=== PATIENT | male | born 1980 | race Caucasian/White ===

== ENCOUNTER 2017-11-30 21:18 | Inpatient (IN) | payer MEDICARE, MEDICAID, OTHER ==
[~2017-11-30] VITALS: Ht 190.5 cm; Wt 117.9 kg
[2017-11-30 04:00] VITALS: BP 92/56
[2017-11-30] MEDS ORDERED: LORAZEPAM 1 MG TABLET PO PRN ×2 (22:15)
[2017-11-30] MEDS ORDERED: DICYCLOMINE HCL 20 MG TABLET PO PRN (22:15)
[2017-11-30] MEDS ORDERED: LORAZEPAM 2 MG/1 ML VIAL IM PRN (22:15)
[2017-11-30] MEDS ORDERED: ACETAMINOPHEN 325 MG TABLET PO PRN (22:15)
[2017-11-30] MEDS ORDERED: IBUPROFEN 600 MG TABLET PO PRN (22:15)
[2017-11-30] MEDS ORDERED: ONDANSETRON 4 MG/2 ML VIAL IM PRN (22:15)
[2017-11-30] MEDS ORDERED: LOPERAMIDE HCL 2 MG CAPSULE PO PRN ×2 (22:15)
[2017-11-30] MEDS ORDERED: BUPRENORPHINE HCL 2 MG TAB.SUBL SL PRN (22:15)
[2017-11-30] MEDS ORDERED: diphenhydrAMINE 50 MG CAPSULE PO PRN (22:15)
[2017-11-30] MEDS ORDERED: MAGNESIUM HYDROXIDE 30 ML LIQUID UDC PO PRN (22:15)
[2017-11-30] MEDS ORDERED: CLONIDINE HCL 0.1 MG TABLET PO PRN (22:15)
[2017-11-30] MEDS ORDERED: MAG HYDROX/AL HYDROX/SIMETH 30 ML LIQUID UDC PO PRN (22:15)
[2017-11-30] MEDS ORDERED: ONDANSETRON ODT 4 MG TAB.RAPDIS SL PRN (22:15)
[2017-11-30 22:32] LABS: BASOPHILS % (AUTO) 0.3 % (0.0-2.0); EOSINOPHILS % (AUTO) 0.4 % (0.0-7.0); HEMATOCRIT 43.5 % (36.7-47.1); HEMOGLOBIN 15.1 g/dL (12.5-16.3); LYMPHOCYTES # (AUTO) 2.3 K/uL (20.0-40.0); LYMPHOCYTES % (AUTO) 21.6 % (20.5-51.5); MEAN CORPUSCULAR HEMOGLOBIN 29.3 uug (23.8-33.4); MEAN CORPUSCULAR HGB CONC 35 g/dL (32.5-36.3); MEAN CORPUSCULAR VOLUME 84.5 fL (73.0-96.2); MONOCYTES # (AUTO) 1.1 K/uL (2.0-10.0); MONOCYTES % (AUTO) 10.5 % (0.0-11.0); NEUTROPHILS # (AUTO) 7.2 K/uL (1.8-8.9); NEUTROPHILS % (AUTO) 67.2 % (38.5-71.5); PLATELET COUNT (AUTO) 215 K/uL (152-348); RED BLOOD CELL COUNT(AUTO) 5.15 MIL/uL (4.06-5.63); WHITE BLOOD COUNT (AUTO) 10.7 K/uL (3.6-10.2)
[2017-11-30 22:50] VITALS: BP 115/78
--- NOTE | 2017-11-30 22:50 | NUR ---
Pre-admission assessment Patient is a 37-year old, male, seen at intake, AAOx4, no SOB and with extreme anxiety noted at this time. Discussed with patient admission policies of the unit. Patient is coherent and able to respond to questions appropriately but ntoed with racing thoughts. Pt is ambulatory with steady gait, with knee stabilizer on the right knee. Pt reports using Xanax up to 3mg PO daily and [place] 10/325 mg PO up to 4x daily. Both are prescribed. Vital signs taken and as follows: WE=028/78, P=82, O2 sat on RA=97%, RR=22, T=98.5. Pt verbalized instructions and teachings regarding disposal of narcotic and other controlled home meds, unit protocols such as taking of vital signs Q4H and handling and disposal of contraband.
[2017-11-30 22:55] LABS: ETHANOL < 3 MG/DL (0-0)
[2017-11-30 23:00] LABS: ALANINE AMINOTRANSFERASE 46 U/L (16-63); ALKALINE PHOSPHATASE 91 U/L (50-136); ASPARTATE AMINOTRANSFERASE 28 U/L (15-37); BILIRUBIN,TOTAL 0.5 mg/dL (0.2-1.0); CARBON DIOXIDE 25 mmol/L (21-32); CHLORIDE 102 mmol/L (98-107); CREATININE 0.9 mg/dL (0.6-1.3); GLUCOSE 97 mg/dL (74-106); MAGNESIUM 1.9 mg/dL (1.8-2.4); POTASSIUM 3.5 mmol/L (3.5-5.1); TOTAL PROTEIN, SERUM 7.6 g/dL (6.4-8.2); UREA NITROGEN, BLOOD 11 mg/dL (7-18)
[2017-11-30] MEDS ORDERED: LORAZEPAM 1 MG TABLET PO SCH (23:00)
--- NOTE | 2017-11-30 23:04 | NUR ---
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 HEIGHT IS 6'3 AND WEIGHT IS 260 LBS. LUNGS ARE CLEAR AND ABDOMEN SOFT AND NON-DISTENDED. BOWEL SOUNDS ACTIVE ON ALL 4 QUADRANT. LAST BOWEL MOVEMENT TODAY. BODY CHECK DONE, SKIN INTACT. OLD SCAR NOTED ON RIGHT KNEE AND LOWER BACK. PATIENT REPORTS PMH OF SLEEP APNEA (ON C-PAP MACHINE), 4 BACK SURGERIES , 7 KNEE SURGERIES, ANXIETY, PANIC D/O, AGORAPHOBIA, SOCIAL D/O, BIPOLAR D/O, ATRIAL FIB, GASTRITIS, GERD, GALLBLADDER REMOVAL, OSTEOMYELITIS, RIGHT HAND SURGERY AND ACL REPAIR. PATIENT REQUESTS TO BE FULL CODE AND ON REGULAR DIET. NO SEIZURE HISTORY. PATIENT LIVES WITH HIS AND KIDS, HES RETIRED. PER PATIENT THIS IS HIS FIRST TIME IN [place] . HES HERE BECAUSE HE WANTS HIS LIFE BACK. HE WAS TRYING TO TAPER HIMSELF AT HOME BUT UNSUCCESSFUL. SUBSTANCE HISTORY ARE: OXYCODONE-ACETAMINOPHEN 10/325 (PRESCRIBED)- STARTED USING SINCE 2006. PATIENT IS USING TAB FOR A WEEK, PREVIOUSLY USING 3-4 TABS DAILY. LAST USE WAS TAB ON 11/30/17 XANAX STARTED USING SINCE 2011 (PRESCRIBED). PATIENT TAKES 3 MG DAILY FOR 3 WEEKS , PREVIOUSLY USING 6 MG DAILY. LAST USE WAS 2 MG ON 11/30/17 MARIJUANA (PRESCRIBED)-STARTED USING A YEAR AGO. PATIENT SMOKES 1 GRAM IN 2 MONTHS. LAST USE WAS 2 HITS ON 11/29/17 PATIENT ADMITTED USING ATIVAN 2 MG , PRESCRIBED BY HIS MD FOR TRIAL IN REPLACE FOR XANAX . HE ONLY USE IT FOR 2 DAYS BECAUSE ATIVAN MAKES HIM SICK. PATIENT'S PCP IS DR. KERA BRICE AND PSYCHIATRIST DR. CARLINE HAWTHORNE. DENIES SI/HI. PATIENT REFUSED FLU/PNEUMONIA VACCINE DUE TO FEARS OF SIDE EFFECTS. EXPLAINED RISKS/BENEFITS BUT STILL REFUSED. HE QUIT SMOKING 1 AND MONTHS AGO. PATIENT BROUGHT HOME MEDS-RECONCILED. PATIENT NOTED ANXIOUS, EMOTIONAL AND ,FLUSHED. COWS 5 AND CIWA 5. ORIENTED PATIENT TO SURROUNDINGS AND HOW TO USE CALL LIGHT. PATIENT STATES HES TIRED AND WANTS TO SLEEP. PATIENT C/O PAIN ON LOWER BACK 3/10, TOLERATED. SAFETY MEASURES IN PLACE. CALL LIGHT IN REACH. WILL CONTINUE TO MONITOR.
[2017-11-30] MEDS ORDERED: LORA-259 PO (23:18)
[2017-11-30] MEDS ORDERED: ALPR2TAB7 PO (23:18)
[2017-11-30] MEDS ORDERED: FLEC100T2 PO (23:18)
[2017-11-30] MEDS ORDERED: HYDR-548 PO (23:18)
[2017-11-30] MEDS ORDERED: DEXL60CA3 PO (23:18)
[2017-11-30] MEDS ORDERED: METO50TA7 PO (23:18)
[2017-12-01 00:48] LABS: *AMPHETAMINE, URINE NEGATIVE (NEGATIVE); *BARBITURATE, URINE NEGATIVE (NEGATIVE); *CANNABINOID, URINE NEGATIVE (NEGATIVE); *COCCAINE, URINE NEGATIVE (NEGATIVE); *OPIATE, URINE NEGATIVE (NEGATIVE); *PHENCYCLIDINE SCREEN,URINE NEGATIVE (NEGATIVE)
[2017-12-01 04:00] VITALS: BP 92/56
--- NOTE | 2017-12-01 04:00 | NUR ---
COWS AND CIWA DEFERRED PATIENT SLEEPING. RESPIRATION EVEN AND UNLABORED. SAFETY MEASURES IN PLACE. CALL LIGHT IN REACH. WILL CONTINUE TO MONITOR.
--- NOTE | 2017-12-01 07:05 | NUR ---
END OF SHIFT NOTE PATIENT SLEPT 3 HOURS. FLUID INTAKE 1,200 ML.VOIDED X 1. NO BM. 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 FIRST TIME IN [place]. PATIENT DID NOT REQUIRE ANY PRN MEDICATION. PATIENT REFUSED [address] HERNANDEZ. LAST COWS 5 AND CIWA 5. EKG DONE RESULTED NORMAL SINUS RHYTHM AND NORMAL ECG. SAFETY MEASURES IN PLACE. CALL LIGHT IN REACH. WILL CONTINUE TO MONITOR.
--- NOTE | 2017-12-01 07:16 | NUR ---
Start of Shift Notes: Received report from night nurse. Patient is a 37 year old male admitted for opiate/BZO dependence who was placed on PRNs at this time . Has past medical hx of sleep apnea, anxiety, panic disorder, social disorder, bipolar disorider, atrial fib, gastritis, cholecystectomy, agoraphobia, back surgery, GERd, knee surgery, right hand surgery, ACL repair, osteomyelitis. FULL CODE. Regular diet. Allergic to Latex and morophine. Patient is alert and oriented x 4. Respirations even and unlabored. No SOB noted. Skin warm and dry to touch. Abdomen soft and non-distended with (+) BS in all 4 quadrants. No complains of N/V/D or constipation noted. Voids independently. Ambulatory ad tanvir with steady gait. Encouraged oral fluid intake and encouraged group participation to learn new skills to prevent relapse. Will continue to monitor closely.
[2017-12-01 08:00] VITALS: BP 119/65
--- NOTE | 2017-12-01 08:45 | NUR ---
MD Communication: Subutex order Clarified patient's allergies. Patient reports that he gets a headache from taking morphine and that it is not a true allergy. Notified MD and notified pharmacy. Per MD, he will come and see the patient first before Subutex administration. Notified and reassured patient.
[2017-12-01] MEDS: LORAZEPAM 1 MG TABLET PO SCH ×3 (08:53→20:31)
[2017-12-01] MEDS: GABAPENTIN 300 MG CAPSULE PO SCH ×2 (08:53→20:32)
--- NOTE | 2017-12-01 08:56 | NUR ---
Zofran 4mg SL/Robaxin 750 mg/Clonidine 0.1mg/Bentyl 20 mg PO given: COWS 21/CIWA 13, patient presented with chills, hot flashes, pupil dilation, myalgia, sweats, anxiety, feeling of panic attack, stomach cramps and vomitting x 4. Medicated patient with ZOfran 4 mg SL, Robaxin 750 mg, Clonidine 0.1mg and Bentyl 20 mg PO as ordered. Notified MD Fenton of patient's COWS/CIWA score. Will come and see the patient shortly. Will monitor for effectiveness.
[2017-12-01] MEDS: METHOCARBAMOL 750 MG TABLET PO PRN ×2 (08:57→20:31)
[2017-12-01] MEDS ORDERED: BUPRENORPHINE HCL 2 MG TAB.SUBL SL SCH (09:00)
[2017-12-01] MEDS ORDERED: TUBERCULIN,PURIF.PROT.DERIV. 5 TU/0.1 ML TEST ID ONE (09:00)
--- NOTE | 2017-12-01 09:56 | NUR ---
Re-assessment: Zofran, Robaxin, Clonidine, Bentyl Per patient, PRN Zofran, Robaxin, Clonidine, and Bentyl were effective in reducing N/V, myalgia, sweats, anxiety, aching and stomach cramps. PL 2/10.
[2017-12-01] MEDS: BUPRENORPHINE HCL 2 MG TAB.SUBL SL SCH ×2 (10:49→20:34)
--- NOTE | 2017-12-01 10:50 | NUR ---
Subutex 4 mg SL later administration: Per , OK to give Subutex at this time. COWS 21.
[2017-12-01] MEDS ORDERED: hydrALAZINE HCL 50 MG TABLET PO PRN (11:15)
[2017-12-01 12:00] VITALS: BP 149/101
[2017-12-01] MEDS: HYDROXYZINE PAMOATE 25 MG CAPSULE PO PRN (12:29)
--- NOTE | 2017-12-01 12:29 | NUR ---
Hydralazine/Vistaril PO given: Patient noted with complain of moderate anxiety. Pulse 90, BP 149/101. Redirected patient with no help. Medicated patient with Hydralazine and Vistaril as ordered. Will monitor effectiveness.
[2017-12-01 13:29] VITALS: BP 139/89
--- NOTE | 2017-12-01 13:29 | NUR ---
Re-assessment: Vistaril and Hydralazine Patient verbalizes mild relief from anxiety. Blood pressure 139/89, Pulse 68. PRN Hydralazine and Vistaril were effective in reducing patient's anxiety and blood pressure.
--- NOTE | 2017-12-01 15:44 | NUR ---
Psych MD Communication: Patient requested to be seen by Dr. Fuentes. Notified Dr. Moore. Dr. Moore and Dr. Fuentes are all in agreement.
[2017-12-01 16:00] VITALS: BP 113/57
--- NOTE | 2017-12-01 19:02 | NUR ---
End of Shift Notes: Patient initiated his 4-day Ativan and 4-day Subutex taper as ordered. No adverse reactions noted. Patient is tolerating taper well. VS monitored closely. BP at 1200 was 149/101, medicated patient with Hydroxyzine at 1229 with help after 1 hour. Withdrawal symptoms were closely monitored. Initial COWS 21/CIWA 13, patient presented with elevated pulse, facial flushing, restlessness, pupil dilation, bone/joint aches, myalgia, runny nose, vomiting, nausea, tremors, sweating, paresthesia, cloudiness in mentation, agitation and anxiety. Medicated patient with Zofran, Robaxin, Clonidine, and Bentyl at 0856 with help after 1 hour. Vistaril 25 mg PO given at 1229 for anxiety with help. Last COWS 8/CIWA 7. Unable to participate in group and activities due to his withdrawal symptoms. On fall and seizure precautions. All needs met and attended. Will continue to monitor closely.
[2017-12-01 20:00] VITALS: BP 152/80
--- NOTE | 2017-12-01 20:00 | NUR ---
START OF SHIFT NOTE RECEIVED REPORT FROM DAY SHIFT NURSE. PATIENT IS A 37 YEAR OLD MALE ADMITTED FOR OPIATE/BENZO DEPENDENCE. CONTINUE PATIENT ON 4 DAY SUBUTEX AND 4 DAY ATIVAN TAPER. PATIENT IS ALLERGIC TO LATEX AND MORPHINE. PATIENT REPORTS PMH OF SLEEP APNEA (ON C-PAP MACHINE), ANXIETY, ATRIAL FIB, GERD, BACK AND KNEE SURGERIES. SKIN INTACT. PATIENT WAS GIVEN PRN HYDRALAZINE, VISTARIL, ZOFRAN , CLONIDINE , BENADRYL , BENTYL AND ROBAXIN. LAST COWS 8 AND CIWA 7. RECEIVED PATIENT ANXIOUS, SWEATING, FINE TREMORS NOTED, BODY ACHES 5/10, NO/V. PATIENT ATTENDED GROUPS. APPETITE IS GOOD. RELAXATION TECHNIQUE PROVIDED. SAFETY MEASURES IN PLACE CALL LIGHT IN REACH. WILL CONTINUE TO MONITOR
--- NOTE | 2017-12-01 20:31 | NUR ---
PRN ROBAXIN ADMINISTRATION PATIENT C/O GENERALIZED BODY ACHES /10. WILL MONITOR FOR EFFECTIVENESS
[2017-12-01] MEDS: METOPROLOL 50 MG PO SCH (20:33)
[2017-12-01] MEDS: FLECAINIDE 150 MG PO SCH (20:34)
--- NOTE | 2017-12-01 21:31 | NUR ---
PRN ROBAXIN RE-ASSESSMENT PATIENT STATES ROBAXIN HELPFUL AND EFFECTIVE. PAIN LEVEL 2/10 AT THIS TIME, TOLERABLE. WILL CONTINUE TO MONITOR
--- NOTE | 2017-12-01 21:40 | NUR ---
PRN BENADRYL ADMINISTRATION PATIENT REQUESTS FOR SLEEP AID. WILL MONITOR FOR EFFECTIVENESS
--- NOTE | 2017-12-01 23:30 | NUR ---
PRN BENADRYL RE-ASSESSMENT PATIENT IN BED WITH EYES CLOSED. C-PAP MACHINE AT BEDSIDE. RESPIRATION EVEN AND UNLABORED. WILL CONTINUE TO MONITOR
[2017-12-02] VITALS: BP 125/66
--- NOTE | 2017-12-02 | NUR ---
COWS/CIWA DEFERRED PATIENT SLEEPING. COWS AND CIWA DEFERRED. RESPIRATION EVEN AND UNLABORED. WILL CONTINUE TO MONITOR
--- NOTE | 2017-12-02 01:07 | NUR ---
PT IS ON HIS OWN CPAP MACHINE. NO RESPIRATORY DISTRESS NOTED.
--- NOTE | 2017-12-02 01:50 | NUR ---
PRN ATIVAN ADMINISTRATION PATIENT WOKE UP ANXIOUS AND FELT PANIC , RESTLESS, IRRITABLE , NOTED ITCHING , AGITATED AND UNABLE TO SLEEP. CIWA 13. RELAXATION TECHNIQUE PROVIDED AND POSITIVE ENCOURAGEMENT GIVEN.
--- NOTE | 2017-12-02 02:50 | NUR ---
PRN ATIVAN RE-ASSESSMENT PATIENT IN BED, SLEEPING AT THIS TIME. CIWA DEFERRED. RESPIRATION EVEN AND UNLABORED. WILL CONTINUE TO MONITOR.
[2017-12-02 04:00] VITALS: BP 108/57
--- NOTE | 2017-12-02 04:00 | NUR ---
COWS/CIWA DEFERRED PATIENT SLEEPING. COWS AND CIWA DEFERRED. RESPIRATION EVEN AND UNLABORED. SAFETY MEASURES IN PLACE. CALL LIGHT IN REACH. WILL CONTINUE TO MONITOR
[2017-12-02] MEDS: DEXILANT 60 MG PO SCH ×2 (06:45→06:49)
--- NOTE | 2017-12-02 07:00 | NUR ---
END OF SHIFT NOTE PATIENT SLEPT 4 HOURS. FLUID INTAKE 1,850 ML. VOIDED X 1 . NO BM. PATIENT IS A 37 YEAR OLD MALE ADMITTED FOR OPIATE/BENZO DEPENDENCE. CONTINUE PATIENT ON 4 DAY SUBUTEX AND 4 DAY ATIVAN TAPER, TOLERATED AND NO ADVERSE REACTION. PATIENT WAS ANXIOUS, SWEATING, FINE TREMORS NOTED, BODY ACHES 5/10, NO/V BEGINNING OF SHIFT. PATIENT ATTENDED GROUPS. APPETITE IS GOOD. AT 0150, PATIENT WOKE UP ANXIOUS, RESTLESS, IRRITABLE , NOTED ITCHING , AGITATED AND UNABLE TO SLEEP. CIWA 13. PRN ATIVAN GIVEN. REDIRECTION PROVIDED AND POSITIVE ENCOURAGEMENT GIVEN. SAFETY MEASURES IN PLACE CALL LIGHT IN REACH. WILL CONTINUE TO MONITOR. LAST COWS 9 AND CIWA 13.
--- NOTE | 2017-12-02 07:10 | NUR ---
Start of Shift Notes: Received report from night nurse. Patient is a 37 year old male admitted for opiate/BZO dependence who was placed on a 4-day Subutex and 4-day Ativan taper as ordered. Has past medical hx of sleep apnea, anxiety, panic disorder, social disorder, bipolar disorider, atrial fib, gastritis, cholecystectomy, agoraphobia, back surgery, GERD, knee surgery, right hand surgery, ACL repair, osteomyelitis. FULL CODE. Regular diet. Allergic to Latex and morophine. Patient is alert and oriented x 4. Respirations even and unlabored. No SOB noted. Skin warm and dry to touch. Abdomen soft and non-distended with (+) BS in all 4 quadrants. No complains of N/V/D or constipation noted. Voids independently. Ambulatory ad tanvir with steady gait. Encouraged oral fluid intake and encouraged group participation to learn new skills to prevent relapse. Will continue to monitor closely.
[2017-12-02 08:00] VITALS: BP 123/71
[2017-12-02 08:11] LABS: HEPATITIS B SURFACE AG Negative (Negative)
[2017-12-02] MEDS: METOPROLOL 50 MG PO SCH ×2 (08:14→21:08)
[2017-12-02] MEDS: GABAPENTIN 300 MG CAPSULE PO SCH ×3 (08:14→21:02)
[2017-12-02] MEDS: FLECAINIDE 150 MG PO SCH ×2 (08:14→21:08)
[2017-12-02] MEDS: LORAZEPAM 1 MG TABLET PO SCH ×3 (08:14→21:02)
--- NOTE | 2017-12-02 08:14 | NUR ---
Motrin 600 mg PO given: Patient noted with left foot pain 6/10. Assessed area. No skin breakdown noted. No redness or swelling noted. Patient verbalizes that he gets this pain on and off while at home due to neuropathy. Medicated patient with Motrin 600 mg PO as ordered. Will monitor for effectiveness.
[2017-12-02] MEDS: BUPRENORPHINE HCL 2 MG TAB.SUBL SL SCH ×3 (08:15→21:02)
[2017-12-02] MEDS ORDERED: HYDROXYZINE PAMOATE 25 MG CAPSULE PO PRN (09:00)
[2017-12-02] MEDS ORDERED: LORAZEPAM 1 MG TABLET PO SCH (09:00)
[2017-12-02] MEDS ORDERED: BUPRENORPHINE HCL 2 MG TAB.SUBL SL SCH ×2 (09:00→15:00)
--- NOTE | 2017-12-02 09:00 | NUR ---
Therapist prompted client about group times. Client stated he will attend all groups today.
--- NOTE | 2017-12-02 09:14 | NUR ---
Re-assessment: Motrin Per patient, PRN Motrin was effective in reducing left foot pain. PL 12/12.
[2017-12-02 12:00] VITALS: BP 130/78
[2017-12-02] MEDS ORDERED: METHYL SALICYLATE/MENTHOL CREAM 28 GM TUBE TOP PRN (12:15)
[2017-12-02] MEDS ORDERED: KETOROLAC TROMETHAMINE 30 MG INJ IM PRN (12:15)
[2017-12-02] MEDS ORDERED: CITA20TA11 PO (13:41)
[2017-12-02] MEDS ORDERED: QUET25TA PO (13:41)
[2017-12-02] MEDS: HYDROXYZINE PAMOATE 25 MG CAPSULE PO PRN (15:17)
--- NOTE | 2017-12-02 15:17 | NUR ---
Vistaril 25 mg PO given: Patient complained of itching 20 minutes after administration of Subutex, Ativan and Gabapentin. VS stable. No hives noted. No wheezing noted. Breathing even and unlabored. Notified Dr. Fenton. Per MD, continue to monitor and administer Vistaril 25 mg PO at this time. Will monitor for effectiveness.
[2017-12-02 16:00] VITALS: BP 128/80
--- NOTE | 2017-12-02 16:17 | NUR ---
Re-assessment: Vistaril Patient states that he feels less itchy and less anxious. PRN Vistaril was effective in reducing anxiety and itching.
--- NOTE | 2017-12-02 18:29 | NUR ---
MD Communication: Patient noted what appears to have a panic attack. Patient states "I don't feel right. My heart is coming out of my chest." VS taken immediately. BP 134/89, Pulse 72. EKG done upon admission and results were "normal sinus rhythm." Patient was redirected and reassurance was provided but did not help. Notified Dr. Fenton. Orders received for patient to have Ativan 2 mg PO x 1 now for severe anxiety. MD Fenton is currently driving and is unable to enter in orders. Orders were noted and carried out.
[2017-12-02] MEDS ORDERED: LORAZEPAM 1 MG TABLET PO ONE (18:30)
--- NOTE | 2017-12-02 18:37 | NUR ---
Ativan 2 mg PO x 1 given: Ativan 2 mg PO x 1 given at this time due to severe anxiety attack m/b agitation, restlessness, and tearfulness. Will monitor for effectiveness.
--- NOTE | 2017-12-02 18:41 | NUR ---
Psych MD Communication: Dr. Fuentes was notified regarding patient's severe agitation and severe panic attack. Dr. Fuentes gave orders for patient to have Zyprexa Zydis 5 mg PO q 4 hours for severe agitation. Dr. Fuentes is currently driving and is unable to enter in orders. Orders were entered. Orders were noted and carried out.
--- NOTE | 2017-12-02 19:07 | NUR ---
End of Shift Notes: Patient continues to be on 4-day Ativan and 4-day Subutex taper as ordered. No adverse reactions noted. Patient is tolerating taper well. VS monitored closely. No significant abnormalities noted. ON Metoprolol as ordered. Withdrawal symptoms were closely monitored. Initial COWS 11/CIWA 11, patient presented with elevated pulse, restlessness, bone/joint aches, myalgia, tremors, sweating, paresthesia, agitation and anxiety. Medicated patient with Motrin 600 mg PO at 0814 for left foot pain. At 1500, patient noted with complain of itching after administration of Subutex, Ativan and Gabapentin. No s/s of respiratory distress noted. No hives noted. Notified MD Fenton, medicated patient with Vistaril 25 mg PO as ordered with help after 1 hour. Ativan 2 mg PO x 1 given at 1830 due to severe anxiety attack. Dr. Fenton and Dr. Fuentes were made aware. Requires redirection and reassurance throughout the day due to severe anxiety. Last COWS 6/CIWA 6 at 1600. Participated in group and activities due to his withdrawal symptoms. On fall and seizure precautions. All needs met and attended. Will continue to monitor closely.
--- NOTE | 2017-12-02 19:35 | NUR ---
START OF SHIFT NOTE RECEIVED REPORT FROM DAY SHIFT NURSE. PATIENT IS A 37 YEAR OLD MALE ADMITTED FOR OPIATE/BENZO DEPENDENCE. CONTINUE PATIENT ON 4 DAY SUBUTEX AND 4 DAY ATIVAN TAPER. PATIENT WAS GIVEN PRN VISTARIL, MOTRIN AND ATIVAN. PATIENT HAD SEVERE PANIC ANXIETY ATTACK AT 1837, PRN ATIVAN WAS GIVEN. NEW ORDER FOR ZYPREXA ZYDIS ORDERED BY DR. SEBASTIAN. LAST COWS 6 AND CIWA 6. CONTINUE REDIRECTION PROVIDED. RECEIVED PATIENT IN THE ROOM, MODERATELY ANXIOUS, RESTLESS, PACING INSIDE THE ROOM AND IRRITABLE. RELAXATION TECHNIQUE PROVIDED. SAFETY MEASURES IN PLACE CALL LIGHT IN REACH. WILL CONTINUE TO MONITOR
[2017-12-02] MEDS: OLANZAPINE ZYDIS 5 MG TAB.RAPDIS PO PRN (19:40)
--- NOTE | 2017-12-02 19:40 | NUR ---
PRN ATIVAN RE-ASSESSMENT/PRN ZYPREXA ADMINISTRATION PATIENT MODERATELY ANXIOUS, RESTLESS, FELT PANIC, IRRITABLE, PACING INSIDE HIS ROOM. ATIVAN HE STATES MILDLY EFFECTIVE . PRN ZYPREXA GIVEN. WILL MONITOR FOR EFFECTIVENESS
[2017-12-02 20:00] VITALS: BP 123/67
--- NOTE | 2017-12-02 20:40 | NUR ---
PRN ZYPREXA RE-ASSESSMENT PATIENT IN BED WITH EYES CLOSED. RESPIRATION EVEN AND UNLABORED. WILL CONTINUE TO MONITOR.
[2017-12-02] MEDS: BACLOFEN 10 MG TABLET PO SCH (21:02)
[2017-12-02] MEDS: DOCUSATE SODIUM 100 MG CAPSULE PO SCH (21:03)
--- NOTE | 2017-12-03 | NUR ---
COWS/CIWA DEFERRED PATIENT SLEEPING. COWS/CIWA DEFERRED.VS REFUSED. RESPIRATION EVEN AND UNLABORED. SAFETY MEASURES IN PLACE. CALL LIGHT IN REACH. WILL CONTINUE TO MONITOR
[2017-12-03] MEDS: OLANZAPINE ZYDIS 5 MG TAB.RAPDIS PO PRN ×4 (02:55→20:06)
--- NOTE | 2017-12-03 02:55 | NUR ---
PRN ZYPREXA ADMINISTRATION PATIENT WOKE UP WITH SEVERE ANXIETY, RESTLESS, IRRITABLE AND FELT PANIC. RELAXATION TECHNIQUE PROVIDED. NON-PHARMACOLOGICAL INTERVENTION INEFFECTIVE. WILL MONITOR FOR EFFECTIVENESS
--- NOTE | 2017-12-03 03:55 | NUR ---
PRN ZYPREXA RE-ASSESSMENT PATIENT IN BED WITH EYES CLOSED. C-PAP ON . RESPIRATION EVEN AND UNLABORED. WILL CONTINUE TO MONITOR
--- NOTE | 2017-12-03 04:00 | NUR ---
COWS/CIWA DEFERRED PATIENT SLEEPING. COWS/CIWA DEFERRED.VS REFUSED. RESPIRATION EVEN AND UNLABORED. SAFETY MEASURES IN PLACE. CALL LIGHT IN REACH. WILL CONTINUE TO MONITOR
[2017-12-03] MEDS: DEXILANT 60 MG PO SCH (07:18)
--- NOTE | 2017-12-03 07:24 | NUR ---
END OF SHIFT NOTE PATIENT SLEPT 8 HOURS. FLUID INTAKE 1,420 ML. VOIDED X 3 . NO BM. PATIENT IS A 37 YEAR OLD MALE ADMITTED FOR OPIATE/BENZO DEPENDENCE. CONTINUE PATIENT ON 4 DAY SUBUTEX AND 4 DAY ATIVAN TAPER. PATIENT WAS GIVEN PRN ZYPREXA AT 1940 DUE TO SEVERE ANXIETY, FELT PANIC AND RESTLESSNESS. 2099, MEDICATION GIVEN ORDERED. AT 254, PATIENT WOKE ANXIOUS AND FELT PANIC, NON-PHARMACOLOGICAL INTERVENTION INEFFECTIVE. PRN ZYPREXA GIVEN. CONTINUOUS REDIRECTION AND POSITIVE ENCOURAGEMENT GIVEN DURING SHIFT. SAFETY MEASURES IN PLACE CALL LIGHT IN REACH. WILL CONTINUE TO MONITOR. LAST COWS 6 AND CIWA 7.
--- NOTE | 2017-12-03 07:30 | NUR ---
START OF SHIFT Pt 37 y/o male admitted for opiate / benzo dependence. pt received awake in room watching television. Pt alert and oritented to name, place, and time. Perrla. Skin warm and moist to touch. Respirations even and unlabored. Bilateral hand tremors noted. Pt with anxiety noted thsi morning. It was reported that pt slept for 5 hours last night. Bed on lowest position with side rails x2 up for safety. Call light within reach. No distress noted at this time.
[2017-12-03 08:00] VITALS: BP 114/72
[2017-12-03] MEDS: GABAPENTIN 300 MG CAPSULE PO SCH ×2 (09:00→14:12)
[2017-12-03] MEDS: BUPRENORPHINE HCL 2 MG TAB.SUBL SL SCH ×2 (09:00→20:06)
[2017-12-03] MEDS ORDERED: LORAZEPAM 1 MG TABLET PO SCH (09:00)
[2017-12-03] MEDS ORDERED: BUPRENORPHINE HCL 2 MG TAB.SUBL SL SCH (09:00)
[2017-12-03] MEDS: BACLOFEN 10 MG TABLET PO SCH ×3 (09:01→20:05)
[2017-12-03] MEDS: METOPROLOL 50 MG PO SCH ×2 (09:01→20:06)
[2017-12-03] MEDS: LORAZEPAM 1 MG TABLET PO SCH ×2 (09:01→20:06)
[2017-12-03] MEDS: FLECAINIDE 150 MG PO SCH ×2 (09:01→20:06)
[2017-12-03] MEDS: HYDROXYZINE PAMOATE 25 MG CAPSULE PO PRN ×2 (09:06→15:51)
--- NOTE | 2017-12-03 09:09 | NUR ---
PRN Pt states feels anxious. Vistaril po prn per MD order given and tolerated well.
--- NOTE | 2017-12-03 09:10 | NUR ---
PRN Pt very anxious. zyprexa po prn per MD order given and tolerated well.
--- NOTE | 2017-12-03 09:15 | NUR ---
Therapist prompted client about group times. Client stated he would attend all groups today.
[2017-12-03] MEDS: MIRALAX 17 GM POWD.PACK PO PRN (09:17)
--- NOTE | 2017-12-03 09:21 | NUR ---
PRN Pt states is constipated. Miralax po solution mix prn per MD order given and tolerated well.
--- NOTE | 2017-12-03 10:10 | NUR ---
HANANE NICK Pt observed in room laying bed watching television.
--- NOTE | 2017-12-03 10:21 | NUR ---
PRN EVAL Pt states had bm x 1
[2017-12-03 12:00] VITALS: BP 130/72
[2017-12-03] MEDS: LIDOCAINE 5% PATCH TD SCH (12:23)
--- NOTE | 2017-12-03 12:31 | NUR ---
PRN Pt with c/o bilateral knee pain. Bengay cream prn per MD order given and tolerated well.
--- NOTE | 2017-12-03 13:27 | NUR ---
PRN Pt states feels very anxious. Zyprexa zydis prn per MD order given and tolerated well.
--- NOTE | 2017-12-03 13:31 | NUR ---
HANANE NICK Pt observed walking around in room.
--- NOTE | 2017-12-03 15:00 | NUR ---
PT Pt was seen by pt for evaluation.
--- NOTE | 2017-12-03 15:52 | NUR ---
PRN Pt states feels anxious. Vistaril po prn per MD order given and tolerated well.
[2017-12-03 16:00] VITALS: BP 140/73
--- NOTE | 2017-12-03 16:52 | NUR ---
HANANE NICK pt observed walking around the hallways.
--- NOTE | 2017-12-03 18:30 | NUR ---
END OF SHIFT Pt 37 y/o male admitted for opiate / benzo dependence. Pt alert and oritented to name, place, and time. Perrla. Skin warm and slightly moist to touch. Respirations even and unlabored. Bilateral hand tremors noted slightly. Pt with periods of anxiety throughout the day. Pt observed mostly isolative to room throughout the day. Pt did attended group activity. Pt was seen by MD today. Pt medication compliant and tolerated well. No ASE noted. Bed on lowest position with side rails x2 up for safety. Call light within reach. No distress noted at this time.
--- NOTE | 2017-12-03 19:10 | NUR ---
Start of Shift Patient Received. Patient is noted in bed, awake, alert and verbally responsive. Breathing even and non labored. Patient is noted to be emotionally labile, noted to be fixated on experiencing panic attacks due to not having the proper amount of Benzos in system. Patient states I dont know of anyone that has had a panic disorder like me. Its just so bad. I was on so Benzos for so long. Im nervous about being off of them. Im afraid of having a seizure. Im always under so much stress because of my Cardiac issue. Allowed patient to verbalizing feelings and offered support. Encouraged deep breathing exercises encouraged social activities for distraction, music, and reading. Patient verbalized understanding. Per endorsement, patient received PRN Zyprexa x2, and Vistaril with medications noted to be intermittently effective. Patient also received PT evaluation with new orders with patient may use can while ambulating. All needs attended to promptly. Will continue plan of care as ordered.
[2017-12-03 20:02] VITALS: BP 141/74
[2017-12-03] MEDS: DOCUSATE SODIUM 100 MG CAPSULE PO SCH (20:06)
--- NOTE | 2017-12-03 20:10 | NUR ---
PRN Medication Administration Patient is noted to be anxious, agitated, and restless. patient is verbalizing "Im just really mad at myself for having to be in this place and mad at the Dr that prescribed me the medications I was on." Allowed patient to express feelings and offered support. Patient denies suicidal ideations. Patient noted to be emotionally labile. PRN Zyprexa administered as per order. Encouraged patient to remain present and encouraged deep breathing exercises. Patient verbalized understanding. All needs attended to promptly. Will continue to monitor.
[2017-12-03] MEDS ORDERED: GABAPENTIN 300 MG CAPSULE PO SCH (21:00)
--- NOTE | 2017-12-03 21:00 | NUR ---
PRN Medication Administration Patient is noted in bed sleeping breathing even and non labored. No signs of restlessness or discomfort noted. PRN Zyprexa noted to be effective. Will continue to monitor. Addendum: 12/03/17 at 2346 by SUE BECERRA LVN PRN Medication Reassessment
[2017-12-03 22:43] VITALS: BP 122/76
[2017-12-03] MEDS ORDERED: LORAZEPAM 1 MG TABLET PO ONE (22:45)
--- NOTE | 2017-12-03 22:57 | NUR ---
MD Communication Patient is noted awake and verbalizing increased feelings of numbness in head and facial tingling. Patient is also verbalizing increased metallic taste and left arm numbness. patient states "I woke up feeling very anxious. I feel like I have pennies in my mouth. Im just worried that I will have a stroke or seizure." Vitals rendered and noted to be 122/76 and pulse of 60, O2 sat of 96%. CIWA noted to be 16. MD made aware with orders for Ativan 2mg to be given now. patient made aware and stated "I dont know if I want to put more benzos into my body. Im trying to get off of them. But the doctor knows best. I wish my was here because she knows me best." Patient Refused medication and states "I will just wait one hour. Maybe because I know you have the medication I will be able to sleep." Risks and benefits explained and patient able to verbalize understanding. MD made aware. Will continue to monitor.
--- NOTE | 2017-12-03 23:15 | NUR ---
Medication Administration Patient noted verbalizing "I have it thought and if the Doctor wants me to take the medication then that is what God wants me to do." One time dose of Ativan 2mg x1 dose administered. Will continue to monitor.
--- NOTE | 2017-12-04 00:09 | NUR ---
Onetime dose Medication Reassessment Patient is noted in bed awake and watching tv. Patient verbalized "my anxiety is slowing going down. Im just trying to relax. The metallic is gone. The tingling in my face is gone. The numbness is gone." Encouraged patient to use deep breathing exercises, reading, or listen to music. Patient verbalized understanding. One time dose of Ativan 2mg noted to be effective. Will continue to monitor.
[2017-12-04 00:17] VITALS: BP 124/79
--- NOTE | 2017-12-04 03:20 | NUR ---
Patient Education Patient is noted awake, alert, and verbally responsive. Patient is noted in snack room preparing a cup of coffee and adding several packages of sugar. Patient was educated on the risks of coffee increasing his anxiety level. Risks and Benefits explained. Patient verbalized "yea I' m aware but I have to have some outlet since I dont smoke." Patient was able to verbalize understanding. Will continue to monitor.
[2017-12-04 04:15] VITALS: BP 127/82
--- NOTE | 2017-12-04 07:20 | NUR ---
End of Shift Patient is in bed sleeping but easily aroused to verbal stimuli. Breathing even and non labored. Patient continues on a modified Ativan taper and modified Subutex taper. Patient was given PRN Zyprexa for increased agitation and one time dose of Ativan 2mg for increased CIWA score 16. Patient was also noted to verbalize increased metallic taste, facial tingling, and numbing to his head and extremities. MD made aware. Approx 0315 Patient was noted awake and drinking coffee. He was educated on the risks of coffee may increasing his anxiety level. Risks and Benefits explained. Patient was able to verbalize understanding. Patient noted to be very fixated on having a seizure or possibly having a stroke due to not having enough Benzos. All needs attended to promptly. Will endorse to continue plan of care as ordered.
--- NOTE | 2017-12-04 07:21 | NUR ---
BEGINNING OF SHIFT Patient endorsement report received from crawler tractor operator nurse, all pertinent information discussed. Patient is a 37 year old male with admitting Dx: Opiate/bzo dependence. Patient under close observation. Patient continues on 4 day Subutex and 4 day Ativan taper as ordered, patient is scheduled to begin day 4 of taper. patient received PRN: Ativan 2mg and Zyprexa during crawler tractor operator, p er crawler tractor operator intermittently effective. As per crawler tractor operator nurse, patient with multiple episodes of "Panic attacks", will monitor closely during shift, will monitor vital signs and cow/ciwa closely. Will encouraged patient to express self and provide patient as needed with non pharmacological interventions. patient slept for 4 hours, and last cow score of: 3, CIWA: 4. Patient received awake, alert and o oriented x4, noted emotionally labile. Educated patient regarding plan of care for the day and medication regimen with good verbal understanding. safety measures in place. call light kept with in reach. all needs met and rendered, call light kept with in reach, will continue to monitor closely.
[2017-12-04 08:15] VITALS: BP 108/60
[2017-12-04] MEDS: LIDOCAINE 5% PATCH TD SCH (08:21)
[2017-12-04] MEDS: MIRALAX 17 GM POWD.PACK PO PRN (08:21)
[2017-12-04] MEDS: FLECAINIDE 150 MG PO SCH ×2 (08:22→20:39)
[2017-12-04] MEDS: DEXILANT 60 MG PO SCH (08:22)
[2017-12-04] MEDS: GABAPENTIN 300 MG CAPSULE PO SCH ×3 (08:22→20:37)
[2017-12-04] MEDS: OLANZAPINE ZYDIS 5 MG TAB.RAPDIS PO PRN ×3 (08:22→20:45)
[2017-12-04] MEDS: HYDROXYZINE PAMOATE 25 MG CAPSULE PO PRN ×3 (08:22→22:31)
[2017-12-04] MEDS: BACLOFEN 10 MG TABLET PO SCH (08:22)
[2017-12-04] MEDS: METOPROLOL 50 MG PO SCH ×2 (08:22→20:39)
--- NOTE | 2017-12-04 08:30 | NUR ---
PRN MIRALAX/ZYPREXA/VISTARIL Patient in room, in bed watching tv, patient noted with racing thoughts reporting last night he could not sleep, that he keeps having "panic attacks" or "numbness and tinglings on hands and arms" Patient currently denying experience numbness or tinglings in hands or arms but reports during the night he did. Reports he feels very anxious and angry, patient reports "i feel out of it, and very anxious". Patient also stating he has not had a bowel movement and feels "constipated" Patients was encouraged to express self, provided patient with non pharmacological interventions, provided patient with calming reassurance with no relief, patient administered: Miralax 17 gram PO for constipation, Zyprexa 5mg PO for agitation and Vistaril 25mg PO for anxiety, will monitor effectiveness of medications. Safety measures in place. call light kept with in reach. Will continue to monitor closely.
[2017-12-04] MEDS ORDERED: LORAZEPAM 1 MG TABLET PO SCH ×2 (09:00)
[2017-12-04] MEDS ORDERED: BUPRENORPHINE HCL 2 MG TAB.SUBL SL SCH ×2 (09:00)
--- NOTE | 2017-12-04 09:30 | NUR ---
ZYPREXA/VISTARIL REASSESSMENT Patient reports feeling less anxious and agitated, reports "i don't have a panic attack anymore" Reports he feels less angry and agitated. Patient currently in bed, watching TV, still noted with episodes of racing thoughts and emotionally labile. Patient continues under very close observation. safety measures in place. call light kept with in reach, will monitor closely.
[2017-12-04] MEDS ORDERED: ASPIRIN/ACETAMINOPHEN/CAFFEINE TABLET PO PRN (11:00)
[2017-12-04 12:06] VITALS: BP 119/74
[2017-12-04] MEDS: BACLOFEN 20 MG TABLET PO SCH ×2 (14:21→20:37)
--- NOTE | 2017-12-04 15:46 | NUR ---
PRN ZYPREXA/VISTARIL Patient walked to nursing station calling for staff nurse, patient verbalized " can i please see you in my room" staff nurse walked back with patient to patients room. Patient sat on bed and verbalized i just feel very anxious and angry. Encouraged patient to express self, patient verbalized he feels like he is having a "panic attack", reports feeling tremulous and having "slurred speech" patient was assessed closely. Respirations are even and unlabored, no SOB, or nasal flaring noted. Patient noted with no tremors that can be felt or seen, patient verbally responsive with no episodes of slurred speech were noted. Patient reports "my blood pressure is high" Patients blood pressure obtained, bp: 113/66 heart rate: 78. Patient provided with calming reassurance, non pharmacological interventions provided as needed with no relief, Administered Zyprexa 5mg PO and Vistaril 50mg PO as ordered, for increase anxiety and agitation, will monitor closely. Safety measures in place.
[2017-12-04 16:38] VITALS: BP 121/77
--- NOTE | 2017-12-04 16:46 | NUR ---
ZYPREXA/VISTARIL REASSESSMENT Patient reports feeling less anxious and agitated, reports "i took a shower and feel better" Reports he feels less angry and agitated. Patient currently in bed, watching TV, No s/sx of tremors noted, no delayed or slurred speech noted. vital signs WNL. Patient continues under very close observation. safety measures in place. call light kept with in reach, will monitor closely.
[2017-12-04] MEDS ORDERED: DIPH50CA37 PO (17:46)
[2017-12-04] MEDS ORDERED: HYDR-3895 PO (17:46)
[2017-12-04] MEDS ORDERED: DICY20TA28 PO (17:46)
[2017-12-04] MEDS ORDERED: BACL20TA PO (17:46)
[2017-12-04] MEDS ORDERED: GABA-534 PO (17:46)
[2017-12-04] MEDS ORDERED: IBUP-1955 PO (17:46)
[2017-12-04] MEDS ORDERED: LIDO30AD10 TD (17:46)
--- NOTE | 2017-12-04 19:04 | NUR ---
END OF SHIFT Patient alert and oriented x4, vital signs were WNL during shift. Patient is compliant with therapeutic plan of care. Patient with admitting Dx: BZO dependence and Received last dose of scheduled Ativan this morning, well tolerated, no ASE noted. Patient with multiple episodes of increase anxiety, provided patient with non pharmacological interventions and administered PRN medications for anxiety as needed with help. Patient also with multiple episodes of stating symptoms with no visible signs of symptoms described, MD is aware. Provided patient with redirection and reassurance as needed. During shift patient presented with: c/o chills, c/o mild bone and joint aches, nasal stuffiness, increase irritability, and anxiety. 0900 COW: 5, CIWA:6; 0900 COW:4; CIWA:4; 1700 COW:4 CIWA:4. Patient is scheduled to be discharged tomorrow. Patient was seen and examined by Dr. Fenton and by Dr. Fuentes during shift. Received PRN:Miralax 17gram PO, Zyprexa 5mg PO x2, and Vistaril 25mg PO x1, Vistaril 50mg PO x1 during shift, medications effective one hour post administration. Encouraged adequate PO fluid intake as tolerated. Encouraged patient to attend group therapies/sessions to learn new coping skills to prevent relapse, denies SI/HI.Noted with good appetite during shift. Safety measures in place, call light kept with in reach. Fall precautions observed at all times. Will continue to monitor. Patient endorsed to black topper nurse, all pertinent information discussed.
[2017-12-04 20:00] VITALS: BP 120/82
--- NOTE | 2017-12-04 20:00 | NUR ---
Start of Shift Patient noted to be anxious and emotional. Pt with racing thoughts. Pt is AAOx4 and verbalized "I worry all the time, especially now. My family is my life." Educated patient regarding anxiety, coping, plan of care and as well as medications. Pt is ambulatory with steady gait. Ativan and Subutex tapers completed and withdrawal symptoms are not exacerbated. Pt with flushed skin but verbalized "I think I look better now than when I got here." Latest COWS=6, CIWA-5. Will continue to monitor.
[2017-12-04] MEDS: DOCUSATE SODIUM 100 MG CAPSULE PO SCH (20:37)
--- NOTE | 2017-12-04 20:39 | NUR ---
RN note Zyprexa Pt noted to be increasingly agitated and with racing thoughts. Administered Zyprexa 5 mg SL. Will reassess.
--- NOTE | 2017-12-04 21:40 | NUR ---
RN note reassess Pt noted to be less anxious and less tremulous. Pt verbalized: "I feel less anxious now."
[2017-12-04] MEDS: METHOCARBAMOL 750 MG TABLET PO PRN (22:31)
--- NOTE | 2017-12-04 22:32 | NUR ---
RN note PRN Vistaril and Robaxin Pt c/o feeling anxious and with generalized muscle pain=6/10. Administered Vistaril 50 mg PO and Robaxin 750 mg PO. Will reassess.
--- NOTE | 2017-12-04 23:35 | NUR ---
RN note reassess Pt verbalized feeling "less anxious" and generalized muscle pain decreased to 2-01/09. Incoming nurse to reassess. Addendum: 12/05/17 at 0643 by JENNI BROWN RN Delete "Incoming nurse to reassess."
[2017-12-05] VITALS: BP 116/74
[2017-12-05 04:00] VITALS: BP 124/82
[2017-12-05] MEDS: HYDROXYZINE PAMOATE 25 MG CAPSULE PO PRN (06:40)
[2017-12-05] MEDS: DEXILANT 60 MG PO SCH (06:40)
[2017-12-05] MEDS: METHOCARBAMOL 750 MG TABLET PO PRN (06:40)
--- NOTE | 2017-12-05 06:41 | NUR ---
RN note PRN Vistaril and Robaxin Pt c/o feeling anxious and with generalized muscle pain=5/10. Administered Vistaril 50 mg PO and Robaxin 750 mg PO. Will reassess.
--- NOTE | 2017-12-05 07:07 | NUR ---
End of Shift Patient is observed to be highly concerned with his health and noted to have racing thoughts from time to time the whole shift. Pt still c/o on and off pain on the lower back and with intermittent chest palpitations. Vital signs were stable the whole shift when taken every 4 hours. With flushed skin. Pt verbalized, "I know that I am still not that good but at least I'm getting there." Latest COWS=4, CIWA-4, slept for 5 hours. Endorsed to AM shift nurse for continuity of care.
--- NOTE | 2017-12-05 07:10 | NUR ---
Start of Shift Clinical Laboratory Aide received report on 37 year old male admitted to [facility] on 11/30/17 for Oxycodone and Xanax detoxification. Pt reports allergies to Latex and Morphine. Pt is a full code and eats a regular diet. Pt reports an extensive PMH to include A-fib, gastritis, GERD, osteomyelitis, multiple surgeries, sleep apnea, anxiety, panic DO, social DO, agoraphobia and bipolar. Pt has completed his tapers of Ativan and Subutex as pt is prepared to discharge this afternoon. Last COWS 4, CIWA 4 recorded by NOC. Pt slept 5 hours. PRN Vistaril and Robaxin administered on NOC x2. Pt is set to discharge to home, then will provide for transportation to treatment facility. Clinical Laboratory Aide encounters pt in his room resting. Pt is A/O x4 and able to make needs known. Pt is anxious, with a flat affect. No complaints at this time. Bed in low position, wheels locked and side rails up x2. Will continue to monitor, support and encourage according to plan of care.
[2017-12-05 08:15] VITALS: BP 130/69
[2017-12-05] MEDS: GABAPENTIN 300 MG CAPSULE PO SCH (08:35)
[2017-12-05] MEDS: LIDOCAINE 5% PATCH TD SCH (08:35)
[2017-12-05] MEDS: BACLOFEN 20 MG TABLET PO SCH (08:35)
[2017-12-05] MEDS: METOPROLOL 50 MG PO SCH (08:35)
[2017-12-05] MEDS: FLECAINIDE 150 MG PO SCH (08:35)
[2017-12-05] MEDS ORDERED: LORAZEPAM 1 MG TABLET PO SCH (09:00)
[2017-12-05] MEDS ORDERED: BUPRENORPHINE HCL 2 MG TAB.SUBL SL SCH (09:00)
--- NOTE | 2017-12-05 09:43 | NUR ---
Discharge Pt was educated on discharge medication, including indication, route and frequency. Pt educated on discharge instructions, pt to go home for 2 days and then transport himself to treatment in [place]. Pt denies any further comments, questions or concerns related to his discharge education and signs all necessary paperwork. Pt's home medication signed for by pt and returned to pt. Pt's belongings signed for and returned. Pt calm and cooperative, able to make needs known. Flat affect with congruent mood. Clear speech and thought process. Pt denies HI/SI and A/VH. Pt's last COWS 2 and CIWA 1 recorded at 0800 this am. Pt discharges per ambulation with all belongings. Pt is picked up in hospital lobby by private car and transported.
== END 2017-12-05 09:43 | disposition other institution (70) | DRG 895 ==
LOC: SRC 21:53
PROVIDERS: ADMIT Internal Medicine; ATTEND Internal Medicine
PROC: HZ2ZZZZ Detoxification Services for Substance Abuse Treatment (ICD-10-PCS; principal; 2017-11-30)
PROC: HZ41ZZZ Group Counseling for Substance Abuse Treatment, Behavioral (ICD-10-PCS; 2017-12-01)
PROC: HZ31ZZZ Individual Counseling for Substance Abuse Treatment, Behavioral (ICD-10-PCS; 2017-12-03)
DX: F11.23 Opioid dependence with withdrawal (principal); G62.9 Polyneuropathy, unspecified; I15.9 Secondary hypertension, unspecified; I48.0 Paroxysmal atrial fibrillation; E66.9 Obesity, unspecified; D72.829 Elevated white blood cell count, unspecified; F12.90 Cannabis use, unspecified, uncomplicated; F17.211 Nicotine dependence, cigarettes, in remission; F13.230 Sedative, hypnotic or anxiolytic dependence with withdrawal, uncomplicated; F32.9 Major depressive disorder, single episode, unspecified; F40.01 Agoraphobia with panic disorder; G47.33 Obstructive sleep apnea (adult) (pediatric); K21.9 Gastro-esophageal reflux disease without esophagitis; Z91.89 Other specified personal risk factors, not elsewhere classified; Z90.49 Acquired absence of other specified parts of digestive tract; Z96.651 Presence of right artificial knee joint; Z81.8 Family history of other mental and behavioral disorders; Z81.3 Family history of other psychoactive substance abuse and dependence; G89.4 Chronic pain syndrome; M17.0 Bilateral primary osteoarthritis of knee; Z68.35 Body mass index [BMI] 35.0-35.9, adult; M54.5 Low back pain; R09.02 Hypoxemia
CPT/HCPCS: 36415; 70030-TC; 80307; 80346; 83735; 85025; 86580; 86592; 86705; 86803; 87340; 87806; 93005; A4663; G0480; Q0162; Q0163